=== PATIENT | female | born 1980 | race Caucasian/White ===

== ENCOUNTER 2017-01-19 21:59 | Emergency (ER) | payer SELFPAY | END 2017-01-19 22:57 | disposition home or self-care (01) | LOC: ER 21:59 | DX: K08.89 Other specified disorders of teeth and supporting structures (principal); K02.9 Dental caries, unspecified; F17.210 Nicotine dependence, cigarettes, uncomplicated; Z98.51 Tubal ligation status | CPT/HCPCS: 99282; 99283 ==